=== PATIENT | male | born 1970 | race Caucasian/White ===

== ENCOUNTER 2016-08-24 12:21 | Inpatient (IN) | payer OTHER ==
[~2016-08-24] VITALS: Ht 170.2 cm; Wt 80.8 kg
[~2016-08-24 12:21] MED LIST: ATIVAN1 MG PO; CLOZAPINE100 MG PO; COGENTIN1 MG PO; COLACE100 MG PO; GEODON80 MG PO; LORAZEPAM1 MG PO; MOTRIN800 MG PO; PERCOCET 5/31 TABLET PO; RISPERDAL2 MG PO; ZIPRASIDONE HCL80 MG PO; ZOFRAN4 MG PO
[2016-08-24 15:34] LABS: EOSINOPHIL (%) 0.9 % (0-5); EOSINOPHIL COUNT 0.1 K/uL (0-0.3); HEMATOCRIT 44.9 % (38.0-50.0); IMMATURE GRANULOCYTE (%) 0.2 % (0.0-0.7); IMMATURE GRANULOCYTE COUNT 0.2 K/uL; LYMPHOCYTE COUNT 0.9 K/uL (1.0-2.8); MCH 32.6 PG (29.0-34.0); MCHC 34.5 G/DL (30.0-36.0); MCV 94.3 FL (86-99); MEAN PLAT.VOLUME 10.9 uM^3 (9.0-12.4); MONOCYTE (%) 6.6 % (3-12); MONOCYTE COUNT 0.7 K/uL (0-0.8); NEUTROPHIL (%) 83.5 % (45-76); NEUTROPHIL COUNT 8.5 K/uL (1.8-6.4); PLATELET COUNT 237 K/uL (156-360); RBC DIS.WIDTH-CV 12.4 % (11.8-14.6); RBC DIS.WIDTH-SD 41.9 % (39-53); RED BLOOD COUNT 4.76 M/uL (4.00-5.50); WHITE BLOOD COUNT 10.2 K/uL (4.1-10.2)
[2016-08-24 15:52] LABS: CHLORIDE 106 mEq/L (99-109); POTASSIUM 3.7 mEq/L (3.7-5.4); SODIUM 138 mEq/L (136-147)
[2016-08-24 15:54] LABS: GLUCOSE 116 mg/dL (70-99)
[2016-08-24 15:56] LABS: ANION GAP 11 MEQ/L (2-14); TOTAL BILIRUBIN 0.7 mg/dL (0.0-1.0)
[2016-08-24 15:57] LABS: SERUM ETHYL ALCOHOL < 10 mg/dL
[2016-08-24 15:58] LABS: ALKALINE PHOSPHATASE 70 IU/L (3-129); GFR ESTIMATE (CALCULATED) > 59 mL/min/
[2016-08-24 15:59] LABS: UREA NITROGEN (BUN) 14 mg/dL (9-23)
[2016-08-24 16:01] LABS: CREATINE KINASE 225 IU/L (1-294)
[2016-08-24 19:59] VITALS: BP 126/90
[2016-08-25] MEDS ORDERED: ZYPREXA20 MG PO (07:30)
[2016-08-25] MEDS ORDERED: RISPERDAL25 MG/2 ML IM (07:30)
[2016-08-25 08:01] VITALS: BP 158/87
[2016-08-26 15:24] VITALS: BP 147/73
[2016-08-27 07:46] VITALS: BP 128/78
[2016-08-27 15:14] VITALS: BP 165/94
[2016-08-27 20:50] VITALS: BP 137/76
[2016-08-28 08:03] VITALS: BP 124/83
[2016-08-28 15:55] VITALS: BP 135/82
[2016-08-29 07:50] VITALS: BP 130/70
[2016-08-29 15:30] VITALS: BP 133/82
[2016-08-30 08:05] VITALS: BP 125/76
[2016-08-30 15:34] VITALS: BP 142/70
[2016-08-31 07:49] VITALS: BP 125/78
[2016-08-31 15:35] VITALS: BP 142/73
[2016-09-01 07:51] VITALS: BP 106/66
[2016-09-01 16:51] VITALS: BP 110/58
[2016-09-02 07:41] VITALS: BP 117/64
[2016-09-02 16:44] VITALS: BP 130/68
[2016-09-03 07:58] VITALS: BP 120/66
[2016-09-03 15:22] VITALS: BP 144/65
[2016-09-04 07:48] VITALS: BP 122/62
[2016-09-04 15:35] VITALS: BP 127/71
[2016-09-05 07:47] VITALS: BP 130/94
[2016-09-05 16:13] VITALS: BP 116/64
[2016-09-06 07:35] VITALS: BP 105/62
[2016-09-06 15:42] VITALS: BP 129/79
[2016-09-07 07:48] VITALS: BP 137/89
[2016-09-08 09:01] VITALS: BP 109/57
[2016-09-09 09:09] VITALS: BP 104/58
[2016-09-10 08:16] VITALS: BP 111/65
[2016-09-10 16:29] VITALS: BP 132/77
[2016-09-11 07:59] VITALS: BP 122/71
[2016-09-11 15:37] VITALS: BP 127/81
[2016-09-12 07:55] VITALS: BP 126/80
[2016-09-12 19:30] VITALS: BP 91/51
[2016-09-13 15:49] VITALS: BP 146/86
[2016-09-13 18:36] VITALS: BP 121/76
[2016-09-14 07:48] VITALS: BP 134/75
[2016-09-14 15:05] VITALS: BP 105/57
[2016-09-15 07:42] VITALS: BP 117/77
[2016-09-15 15:32] VITALS: BP 164/84
[2016-09-16 07:33] VITALS: BP 118/57
[2016-09-16 15:46] VITALS: BP 128/74
[2016-09-17 08:06] VITALS: BP 126/59
[2016-09-17 15:42] VITALS: BP 142/76
[2016-09-18 15:33] VITALS: BP 140/65
[2016-09-19 07:46] VITALS: BP 134/78
[2016-09-19 15:51] VITALS: BP 146/82
[2016-09-20 07:58] VITALS: BP 114/70
[2016-09-20 16:02] VITALS: BP 125/70
[2016-09-21 07:49] VITALS: BP 123/64
[2016-09-22 07:53] VITALS: BP 127/63
[2016-09-22 15:30] VITALS: BP 122/62
[2016-09-23 07:50] VITALS: BP 123/77
[2016-09-23 15:23] VITALS: BP 131/78
[2016-09-24 07:57] VITALS: BP 134/70
[2016-09-24 16:05] VITALS: BP 120/75
[2016-09-25 07:46] VITALS: BP 119/75
[2016-09-25 18:17] VITALS: BP 139/73
[2016-09-26 07:47] VITALS: BP 94/46
[2016-09-26 15:34] VITALS: BP 138/82
[2016-09-27 08:03] VITALS: BP 96/53
[2016-09-27 15:37] VITALS: BP 139/73
[2016-09-28 07:52] VITALS: BP 132/74
[2016-09-28 15:34] VITALS: BP 160/86
[2016-09-29 07:30] VITALS: BP 114/65
[2016-09-29 15:54] VITALS: BP 135/80
[2016-09-30 07:38] VITALS: BP 131/65
[2016-09-30 16:02] VITALS: BP 126/80
[2016-10-01 07:49] VITALS: BP 124/71
[2016-10-01 15:35] VITALS: BP 122/65
[2016-10-02 07:59] VITALS: BP 108/55
[2016-10-02 15:53] VITALS: BP 107/68
[2016-10-03 07:42] VITALS: BP 122/71
[2016-10-03 15:46] VITALS: BP 131/73
[2016-10-04 09:38] VITALS: BP 98/57
[2016-10-04 15:53] VITALS: BP 135/73
[2016-10-05 07:42] VITALS: BP 93/53
[2016-10-05 15:26] VITALS: BP 132/75
[2016-10-06 07:43] VITALS: BP 106/59
[2016-10-06 15:09] VITALS: BP 116/70
[2016-10-07 07:46] VITALS: BP 102/55
[2016-10-07 15:36] VITALS: BP 125/63
[2016-10-08 07:49] VITALS: BP 105/88
[2016-10-08 15:18] VITALS: BP 129/66
[2016-10-09 15:25] VITALS: BP 122/73
[2016-10-10 07:48] VITALS: BP 105/62
[2016-10-10 15:29] VITALS: BP 144/69
[2016-10-11 09:07] VITALS: BP 139/68
[2016-10-11 16:07] VITALS: BP 128/74
[2016-10-12 07:56] VITALS: BP 107/72
[2016-10-12 15:12] VITALS: BP 118/74
[2016-10-13 07:42] VITALS: BP 101/63
[2016-10-13 16:16] VITALS: BP 125/64
[2016-10-14 07:15] VITALS: BP 104/56
[2016-10-14 15:51] VITALS: BP 120/73
[2016-10-15 09:15] VITALS: BP 105/58
[2016-10-15 15:51] VITALS: BP 115/75
[2016-10-16 07:28] VITALS: BP 108/54
[2016-10-16 15:48] VITALS: BP 122/72
[2016-10-17 07:56] VITALS: BP 128/62
[2016-10-17 16:03] VITALS: BP 136/74
[2016-10-18 07:52] VITALS: BP 101/56
[2016-10-18 16:12] VITALS: BP 115/67
[2016-10-19 07:46] VITALS: BP 112/66
[2016-10-19 15:45] VITALS: BP 108/60
[2016-10-20 07:52] VITALS: BP 127/72
[2016-10-20 15:30] VITALS: BP 122/83
[2016-10-21 09:44] VITALS: BP 108/53
[2016-10-21 15:44] VITALS: BP 124/58
[2016-10-22 08:04] VITALS: BP 102/63
[2016-10-22 15:33] VITALS: BP 118/63
[2016-10-23 07:45] VITALS: BP 97/50
[2016-10-23] MEDS ORDERED: ZYPREXA20 MG PO (09:25)
[2016-10-23] MEDS ORDERED: RISPERDAL50 MG/2 ML IM (09:25)
== END 2016-10-23 13:20 | disposition home or self-care (01) | DRG 885 ==
LOC: EME 12:21 → 1WEST 17:09 → EDOF 17:09 → 1WEST 19:53
PROVIDERS: Emergency Medicine
DX: F20.9 Schizophrenia, unspecified (principal); Z91.19 Patient's noncompliance with other medical treatment and regimen; F17.200 Nicotine dependence, unspecified, uncomplicated; Z59.0 Homelessness
CPT/HCPCS: 80053; 81003; 82550; 85025; 90837; 97003 GO; 97150 GO; 97168 GO; 97530 GO; 99281; 99284; G0478; G0480; J2060; J2794; Q0177

== ENCOUNTER 2016-12-21 21:37 | Emergency (ER) | payer OTHER ==
[~2016-12-21] VITALS: Ht 175.3 cm; Wt 84.1 kg
[~2016-12-21 21:37] MED LIST changes: +RISPERDAL25 MG/2 ML IM; +RISPERDAL50 MG/2 ML IM; +ZYPREXA20 MG PO
[2016-12-21 22:08] LABS: AMPHETAMINE NEGATIVE (500 ng/mL); BARBITURATES NEGATIVE (200 ng/mL); BENZODIAZEPINES NEGATIVE (150 ng/mL); COCAINE NEGATIVE (150 ng/mL); INTERNAL CONTROLS VALID? YES; METHADONE NEGATIVE (200 ng/mL); METHAMPHETAMINE NEGATIVE (500 ng/mL); OPIATES (MORPHINE) NEGATIVE (100 ng/mL); OXYCODONE NEGATIVE (100 ng/mL); PHENCYCLIDINE NEGATIVE (25 ng/mL); PROPOXYPHENE NEGATIVE (300 ng/mL); THC CANNABINOIDS NEGATIVE (50 ng/mL); TRICYCLIC ANTIDEPRESSANTS NEGATIVE (300 ng/mL)
[2016-12-21 22:13] LABS: MCH 31.5 PG (29.0-34.0); MCHC 32.9 G/DL (30.0-36.0); MCV 95.6 FL (86-99); MEAN PLAT.VOLUME 10.8 uM^3 (9.0-12.4); PLATELET COUNT 230 K/uL (156-360); RBC DIS.WIDTH-CV 12.2 % (11.8-14.6); RBC DIS.WIDTH-SD 43.1 % (39-53); RED BLOOD COUNT 5.02 M/uL (4.00-5.50); WHITE BLOOD COUNT 11.7 K/uL (4.1-10.2)
[2016-12-21 22:21] LABS: CHLORIDE 103 mEq/L (99-109); POTASSIUM 3.7 mEq/L (3.7-5.4); SODIUM 140 mEq/L (136-147)
[2016-12-21 22:22] LABS: GLUCOSE 114 mg/dL (70-99)
[2016-12-21 22:24] LABS: ANION GAP 13 MEQ/L (2-14)
[2016-12-21 22:26] LABS: GFR ESTIMATE (CALCULATED) > 59 mL/min/; SERUM ETHYL ALCOHOL < 10 mg/dL
[2016-12-21 22:27] LABS: UREA NITROGEN (BUN) 8 mg/dL (9-23)
[2016-12-22 04:08] VITALS: BP 111/75
== END 2016-12-22 04:35 | disposition home or self-care (01) ==
LOC: EME 21:37
DX: F32.9 Major depressive disorder, single episode, unspecified (principal); F41.9 Anxiety disorder, unspecified; F20.9 Schizophrenia, unspecified; F17.200 Nicotine dependence, unspecified, uncomplicated
CPT/HCPCS: 80048; 85027; 90839; 99281; 99284; G0480

== ENCOUNTER 2016-12-22 16:59 | Emergency (ER) | payer OTHER ==
[~2016-12-22] VITALS: Ht 175.3 cm; Wt 82.1 kg
[2016-12-22 17:54] LABS: CHLORIDE 106 mEq/L (99-109); SODIUM 138 mEq/L (136-147)
[2016-12-22 17:56] LABS: GLUCOSE 102 mg/dL (70-99)
[2016-12-22 17:57] LABS: ANION GAP 9 MEQ/L (2-14)
[2016-12-22 17:59] LABS: SERUM ETHYL ALCOHOL < 10 mg/dL
[2016-12-22 18:00] LABS: EOSINOPHIL (%) 1.4 % (0-5); EOSINOPHIL COUNT 0.1 K/uL (0-0.3); GFR ESTIMATE (CALCULATED) > 59 mL/min/; IMMATURE GRANULOCYTE (%) 0.4 % (0.0-0.7); INSTRUMENT ABS NEUTROPHIL CT 7.3 K/uL; LYMPHOCYTE COUNT 1.3 K/uL (1.0-2.8); MCH 31.5 PG (29.0-34.0); MCHC 33.7 G/DL (30.0-36.0); MCV 93.6 FL (86-99); MONOCYTE (%) 8.7 % (3-12); MONOCYTE COUNT 0.8 K/uL (0-0.8); NEUTROPHIL (%) 75.8 % (45-76); NEUTROPHIL COUNT 7.3 K/uL (1.8-6.4); PLATELET COUNT 199 K/uL (156-360); RBC DIS.WIDTH-CV 12.2 % (11.8-14.6); RBC DIS.WIDTH-SD 42.6 % (39-53); RED BLOOD COUNT 4.38 M/uL (4.00-5.50); WHITE BLOOD COUNT 9.6 K/uL (4.1-10.2)
[2016-12-22 18:01] LABS: UREA NITROGEN (BUN) 11 mg/dL (9-23)
[2016-12-22 18:04] LABS: AMPHETAMINE NEGATIVE (500 ng/mL); BARBITURATES NEGATIVE (200 ng/mL); BENZODIAZEPINES NEGATIVE (150 ng/mL); COCAINE NEGATIVE (150 ng/mL); INTERNAL CONTROLS VALID? YES; METHADONE NEGATIVE (200 ng/mL); METHAMPHETAMINE NEGATIVE (500 ng/mL); OPIATES (MORPHINE) NEGATIVE (100 ng/mL); OXYCODONE NEGATIVE (100 ng/mL); PHENCYCLIDINE NEGATIVE (25 ng/mL); PROPOXYPHENE NEGATIVE (300 ng/mL); THC CANNABINOIDS NEGATIVE (50 ng/mL); TRICYCLIC ANTIDEPRESSANTS NEGATIVE (300 ng/mL)
[2016-12-22 21:10] VITALS: BP 127/66
== END 2016-12-22 21:14 | disposition home or self-care (01) ==
LOC: EME 16:59
PROVIDERS: Emergency Medicine
DX: F32.2 Major depressive disorder, single episode, severe without psychotic features (principal); F25.9 Schizoaffective disorder, unspecified; F17.200 Nicotine dependence, unspecified, uncomplicated; Z88.8 Allergy status to other drugs, medicaments and biological substances
CPT/HCPCS: 80048; 85025; 90832; G0480